=== PATIENT | male | born 1990 | race Two or more races ===

== ENCOUNTER 2021-02-03 09:00 | Emergency (ER) | payer SELFPAY ==
[~2021-02-03] VITALS: Ht 167.6 cm; Wt 76.4 kg
--- NOTE | 2021-02-03 09:26 | NUR ---
Pt changed to a gown, urine collected and walked to lab. Waiting for ERP provider evaluation.
[2021-02-03] MEDS ORDERED: CEFTRIAXONE 1,000 MG IM ONE (09:30)
[2021-02-03] MEDS ORDERED: CEFTRIAXONE 1,000 MG ONE (09:36)
[2021-02-03] MEDS ORDERED: LIDOCAINE-MPF 1%, 5ML ONE (09:36)
[2021-02-03 09:47] LABS: MICROSCOPIC AUTO
--- NOTE | 2021-02-03 10:09 | NUR ---
Chapperoned Urvashi Crowell for exam/genitals. Pt to have ultrasound, and he agrees with the POC>
--- NOTE | 2021-02-03 10:20 | NUR ---
Lab drawing blood, waiting for ultrasound. AIDET provided.
[2021-02-03 10:26] LABS: BASOPHILS % (AUTO) 0 % (0-1); EOSINOPHILS % (AUTO) 0 % (1-7); LYMPHOCYTES % (AUTO) 21 % (22-44); MEAN CORPUSCULAR HEMOGLOBIN 28.8 pg (27.5-34.5); MEAN CORPUSCULAR HGB CONC 33.8 g/dL (33.2-36.2); MONOCYTES % (AUTO) 8 % (2-9); NEUTROPHILS % (AUTO) 70 % (42-75); PLATELET COUNT 308 x10^3/uL (130-400); RED BLOOD COUNT 6.37 x10^6/uL (4.38-5.82); RED CELL DISTRIBUTION WIDTH 13.5 % (9.4-14.8)
[2021-02-03 10:40] LABS: CALCIUM 9.8 mg/dL (8.5-10.1); CHLORIDE 105 mmol/L (98-107)
[2021-02-03 10:51] LABS: ALANINE AMINOTRANSFERASE 48 U/L (12-78); ALBUMIN 4.1 g/dL (3.4-5.0); ALKALINE PHOSPHATASE 78 U/L (45-117); ANION GAP 5 mmol/L (5-15); BILIRUBIN,TOTAL 0.5 mg/dL (0.2-1.0); CREATININE 1.05 mg/dL (0.7-1.3); TOTAL PROTEIN 8.4 g/dL (6.4-8.2)
[2021-02-03 11:44] VITALS: BP 128/84
--- NOTE | 2021-02-03 11:44 | NUR ---
dc home with rx and instruct, pt verbalizes understanding of instruct and f/u. To return to er if worse or concerns.
== END 2021-02-03 11:51 | disposition home or self-care (01) ==
LOC: ED 09:39
DX: N50.811 Right testicular pain (principal); A56.8 Sexually transmitted chlamydial infection of other sites; A54.9 Gonococcal infection, unspecified
CPT/HCPCS: 36415; 76870; 80053; 81001; 85025; 87086; 87491; 87591; 96372; 99284; J0696

== ENCOUNTER 2021-03-16 14:50 | Emergency (ER) | payer OTHER ==
[~2021-03-16] VITALS: Ht 167.6 cm; Wt 76.0 kg
[2021-03-16 14:55] VITALS: BP 107/64
== END 2021-03-16 15:09 | disposition home or self-care (01) ==
LOC: ED 15:00
DX: S01.91XD Laceration without foreign body of unspecified part of head, subsequent encounter (principal); X58.XXXD Exposure to other specified factors, subsequent encounter
CPT/HCPCS: 99281